=== PATIENT | female | born 2000 | race Caucasian/White ===

== ENCOUNTER 2020-03-27 10:26 | Emergency (ER) | payer OTHER, SELFPAY ==
[2020-03-27 10:41] VITALS: BP 125/58; PULSE 69; RESP 20; TEMP 37.2; O2SAT 100
--- NOTE | 2020-03-27 10:56 | ED.SKABFB ---
HPI - Skin/Abscess/Foreign Bdy General Chief complaint: Skin/Abscess/Foreign Body Stated complaint: Rash on arms Time Seen by Provider: 03/27/20 10:47 Source: patient and RN notes reviewed Mode of arrival: ambulatory Limitations: no limitations History of Present Illness HPI narrative: Patient presents today with a 2-week history of a pruritic rash to her right arm. States it has been worsening since onset. Denies pain or drainage. States that she recently had a tattoo to the forearm and has been applying Aquaphor and hydrocortisone to the area with mild short-term relief. States she did have a small amount of the rash prior to the tattoo. Denies any new household products, foods, plant or animal exposures, medications. MD complaint: rash Related Data Allergies Allergy/AdvReac Type Severity Reaction Status Date / Time No Known Allergies Allergy Verified 03/27/20 10:43 Review of Systems Review of Systems: Narrative: CONSTITUTIONAL: Denies body aches, fever, chills, or sweats. EYES: Denies visual changes, redness, or discharge. ENT: Denies rhinorrhea, congestion, sore throat, or otalgia. CARDIOVASCULAR: Denies chest pain, palpitations, or edema. RESPIRATORY: Denies cough or dyspnea. GASTROINTESTINAL: Denies abdominal pain, nausea, vomiting, or diarrhea. GENITOURINARY: Denies dysuria or hematuria. SKIN: + Pruritic rash MUSCULOSKELETAL: Denies back pain, joint pain, or myalgia. NEUROLOGIC: Denies headache, numbness, tingling, or weakness. PSYCH: Denies depression or anxiety. PMFSH Comments At time of signature, I have reviewed and agree with nursing past medical, surgical, social and family history unless otherwise noted. Please see nursing chart for further information. There is no relevant family history pertinent to the presenting complaint Exam Narrative: Exam Narrative: GENERAL: Well-appearing, well-nourished, and in no acute distress. HEAD: Normocephalic, atraumatic. EYES: EOMI. No redness or drainage. Conjunctivae normal. ENT: Mucous membranes pink and moist. NECK: Normal AROM. CHEST: No respiratory distress. EXTREMITIES: Normal range of motion. No edema. SKIN: Warm, dry. Capillary refill normal. Normal skin turgor. 10 x 12 cm area of mildly erythematous papular rash to the right antecubital fossa, extending to the right bicep. No induration, vesicles, drainage, or crusting. It is not warm to touch. No edema. NEURO: No focal deficits. Alert and oriented x3. Gait steady. PSYCH: Normal affect. No signs of depression or anxiety. Course Vital Signs Vital signs: Vital Signs Temperature 99 F 03/27/20 10:41 Pulse Rate 69 03/27/20 10:41 Respiratory Rate 20 03/27/20 10:41 Blood Pressure 125/58 L 03/27/20 10:41 Pulse Oximetry 100 03/27/20 10:41 Temperature 99 F 03/27/20 10:41 Pulse Rate 69 03/27/20 10:41 Respiratory Rate 20 03/27/20 10:41 Blood Pressure 125/58 L 03/27/20 10:41 Pulse Oximetry 100 03/27/20 10:41 Reviewed. Pt has been instructed to follow up with her PCP regarding her elevated blood pressure today. MDM - Skin/Abscess/Foreign Bdy Differential Diagnosis Differential diagnosis: Likely abscess of skin or subcutaneous tissue, viral exanthem, urticaria, allergic reaction to drug, cellulitis, eczema, impetigo and contact dermatitis Critical Care Time Critical Care Time Critical Care Time: No Discharge Plan Discharge Clinical Impression: Contact dermatitis Qualifiers: Contact dermatitis type: unspecified Contact dermatitis trigger: unspecified trigger Qualified Code(s): L25.9 - Unspecified contact dermatitis, unspecified cause Patient Disposition: Home, Self-Care Condition: Stable Instructions: Contact Dermatitis (DC) Additional Instructions: Please take the prednisone as directed. Take Benadryl for itching. You may apply hydrocortisone to the rash as well. Follow-up with your doctor in 2 to 3 days if symptoms are not improving. Your blood p
== END 2020-03-27 11:10 | disposition home or self-care (01) ==
PROVIDERS: Emergency Provider Nurse Practitioner
DX: L25.9 Unspecified contact dermatitis, unspecified cause (principal)
CPT/HCPCS: 99203; G0463

== ENCOUNTER 2022-12-09 11:22 | Emergency (ER) | payer OTHER, SELFPAY ==
[2022-12-09 11:30] VITALS: BP 135/65; PULSE 63; RESP 20; TEMP 36.7; O2SAT 97
--- NOTE | 2022-12-09 11:34 | ED.ABDPAIN ---
HPI - Abdominal Pain General Chief Complaint: Abdominal Pain Stated Complaint: stomach issues Source: patient and RN notes reviewed History of Present Illness HPI narrative: 22 yo F presents to urgent care with complaints of intermittent epigastric abdominal pain. Pt states it has probably been going on for a couple years but the last few days it has been worse. Pt denies any pain radiation. Denies any vomiting, chest pain, SOB, fevers, chills, diarrhea, or lower abdominal pain. Pt states she saw her MD about this a couple years ago and she was prescribed she thinks Pepcid or something of the like that did not help. Pt has taken ibuprofen and ASA for this pain. Related Data Allergies Allergy/AdvReac Type Severity Reaction Status Date / Time No Known Allergies Allergy Verified 03/27/20 10:43 Review of Systems Review of Systems: CONSTITUTIONAL: Denies fever, chills, or sweats. EYES: Denies visual changes, redness, or discharge. ENT: Denies otalgia and sore throat CARDIOVASCULAR: Denies chest pain, palpitations, or edema. RESPIRATORY: Denies cough or dyspnea. GASTROINTESTINAL: Denies abdominal pain, nausea, vomiting, or diarrhea. GENITOURINARY: Denies dysuria or hematuria. SKIN: Denies rash or itching. MUSCULOSKELETAL: Denies back pain, joint pain, or myalgia. NEUROLOGIC: Denies headache, numbness, or weakness. Pertinent positives per HPI. PMFSH Comments At the time of my signature, I reviewed and agree with the nursing past medical, surgical, social, and family history. There is no relevant family history pertinent to the patient complaint. Exam Narrative: GENERAL: This is a well-nourished, well-developed patient, in no apparent distress. HEAD: normocephalic, atraumatic. EYES: Sclera clear/white. Vision is grossly intact. EARS: External ears normal, auditory canals clear and without drainage. Hearing grossly intact. NOSE: External nose normal with no obvious nasal discharge, nares without redness, no rhinorrhea. NECK: Neck supple, non-tender without lymphadenopathy, masses or thyromegaly. CARDIOVASCULAR: Regular rate and rhythm without murmurs, gallops, or rubs. RESPIRATORY: Clear to auscultation. Breath sounds equal bilaterally. No wheezes, rales, or rhonchi. GASTROINTESTINAL: Abdomen soft, non-tender, nondistended. Bowel sounds are active. No hepato-splenomegaly, or palpable masses. No guarding. SKIN: warm, intact with no suspicious lesions or rash, good texture and turgor. NEURO: awake, alert, and oriented to person, place and time. There were no obvious focal neurologic abnormalities. BACK: Nontender without deformity or crepitus. No flank tenderness. Course Course Level of Care: Express Care Visit Vital Signs Vital signs: reviewed MDM - Abdominal Pain MDM Narrative Medical decision making narrative: Try to avoid alcohol, smoking, and caffeine. Do not take Ibuprofen or aspirin for your abdominal pain. If you have to take ibuprofen or aspirin for other ailments, take only prescribed amount and make sure you take it with food. Make sure to eat a small meal at dinner time. May take Maalox (offered over the counter) to help with the acute upper abdomen pain. If pain becomes severe, go to the ER. Follow up with your flying teacher if symptoms persist. Differential Diagnosis Differential diagnosis: Likely gastroenteritis and other (gastritis, gastric ulcer, GERD, cholelithiasis, cholecystitis) Critical Care Time Critical Care Time Critical Care Time: No Discharge Plan Discharge Clinical Impression: Gastritis Qualifiers: Gastritis type: unspecified gastritis Chronicity: unspecified Gastritis bleeding: presence of bleeding unspecified Qualified Code(s): K29.70 - Gastritis, unspecified, without bleeding Patient Disposition: Home, Self-Care Condition: Stable Instructions: Gastritis (DC) Additional Instructions: Try to avoid alcohol, smoking, and caffeine. Do not take Ibuprofen or aspirin f
== END 2022-12-09 11:47 | disposition home or self-care (01) ==
PROVIDERS: Emergency Provider Nurse Practitioner Family
DX: K29.70 Gastritis, unspecified, without bleeding (principal)
CPT/HCPCS: 99211; G0463

== ENCOUNTER 2024-07-02 12:29 | Emergency (ER) | payer OTHER, SELFPAY ==
[2024-07-02 12:30] VITALS: BP 144/68; PULSE 92; RESP 16; TEMP 36.6; O2SAT 99
--- OUTSIDE RECORDS SUMMARY | 2024-07-02 12:35 | XMS_ITS | Clinical Summary ---
Author Organization [facility] [employer] [place] Address [address] [place] [address] Care Team Providers Care Cab Driver Name Role Phone Unavailable Primary Care Provider Unavailabl e Allergies No known active allergies Medications norethindrone Ac-Eth estradiol (Loestrin 02/28, ,) 1-20 mg-mcg tabletIndications: Encounter for refill of prescription for contraception Take 1 Tablet by mouth daily. 90 Tablet 3 2 Active Active Problems Problem Noted Date Diagnosed Date Anxiety state 07/09/2017 Immunizations Immunization Administration Dates Next Due Meningococcal Polysaccharide Vaccine SQ 10/21/19 18 Family History Medical History Relation Name Comments No Known Problems Brother No Known Problems Father No Known Problems Maternal Grandfather No Known Problems Maternal Grandmother No Known Problems Mother No Known Problems Paternal Grandfather No Known Problems Paternal Grandmother No Known Problems Sister Relation Name Status Comments Brother Alive Father Alive Maternal Grandfather Alive Maternal Grandmother Alive Mother Alive Paternal Grandfather Alive Paternal Grandmother Alive Sister Alive Social History Tobacco Use Types Packs/Day Years Used Date Smoking Tobacco: Light Smoker Smokeless Tobacco: Never Tobacco Cessation:Ready to Q uit: No; Counseling Given: Yes Alcohol Use Standard Drinks/Week Comments No 0 (1 standard drink = 0.6 oz pur e alcohol) Comments No Sex and Gender Information Value Date Recorded Sex Assigned at Not on file Legal Sex Female 12:55 PM CDT Gender Identity Not on file Sexual Orientation Not on file Last Filed Vital Signs Vital Sign Reading Time Taken Comments Blood Pressure 116/72 11/12/2021 2:52 PM CDT Pulse 77 11/12/2021 2:52 PM CDT Temperature 37.1 C (98.7 F) 11/12/2021 2:52 PM CDT Respiratory Rate 18 11/12/2021 2:52 PM CDT Oxygen Saturation 97% 11/12/2021 2:52 PM CDT Inhaled Oxygen Concentration - - Weight 114.3 kg (252 lb) 11/12/2021 2:52 PM CDT Height 160 cm (5' 3 ) 11/12/2021 2:52 PM CDT Body Mass Index 44.64 11/12/2021 2:52 PM CDT Plan of Treatment Health Maintenance Due Date Last Done Comments CHLAMYDIA SCREENING (ANNUAL) 11-24 YEARS 08/06/2011 HPV VACCINES (1 - 3-dose series) 08/06/2015 DTAP/TDAP/TD VACCINES (1 - Tdap) 08/06/2019 HEPATITIS B VACCINES (1 of 3 - 19+ 3-dose series) 07/11 CERVICAL CANCER SCREENING 2021 HPV/Cotest (21-29) 2021 PAP SMEAR 2021 INFLUENZA VACCINE (#1) 2023 11/12/2021 Insurance [facility] OPEN ACCESS * Guarantor: [employer] Account Type Relation to Patient Date of Phone Billing Address Corporate Employer ATTN: [employer] [address] [address]
--- OUTSIDE RECORDS SUMMARY | 2024-07-02 12:35 | XMS_ITS | Clinical Summary ---
Author Organization [facility] Address [address] [place] [address] Phone Care Team Providers Care Velvet Cutter Name Role Phone Amando Carnes MD Primary Care Provider [phone] Allergies No known active allergies Medications pantoprazole (PROTONIX) 40 MG Tablet Delayed Response Take 1 Tablet by mouth daily. 30 Tablet 03/13/2023 Active traMADol (ULTRAM) 50 MG TabletIndicatio ns:Epigastric pain Take 1-2 Tablets by mouth every 6 hours as needed for Moderate or more severe pain. 12 Tablet 03/13/2023 Active Social History Tobacco Use Types Packs/Day Years Used Date Smoking Tobacco: Never Smokeless Tobacco: Never Tobacco Cessation:Counseling Given: Not Answered Alcohol Use Standard Drinks/Week Comments Yes 0 (1 standard drink = 0.6 oz pur e alcohol) on occassion Sexually Active Control Partners Comments Yes Comments No Sex and Gender Information Value Date Recorded Sex Assigned at Not on file Legal Sex Female 8:52 PM CDT Gender Identity Not on file Sexual Orientation Not on file Last Filed Vital Signs Vital Sign Reading Time Taken Comments Blood Pressure 144/73 03/13/2023 2:15 PM COMMUNICATION MANAGER Pulse 64 03/13/2023 2:15 PM COMMUNICATION MANAGER Temperature 36.6 C (97.9 F) 03/13/2023 12:14 PM COMMUNICATION MANAGER Respiratory Rate 16 03/13/2023 12:1 4 PM COMMUNICATION MANAGER Oxygen Saturation 98% 03/13/2023 2:15 PM COMMUNICATION MANAGER Inhaled Oxygen Concentration - - Weight 118.3 kg (260 lb 12.9 oz) 2023 12:14 PM COMMUNICATION MANAGER Height 157.5 cm (5' 2 ) 03/13/2023 12:1 4 PM COMMUNICATION MANAGER Body Mass Index 47.7 03/13/2023 12:14 PM COMMUNICATION MANAGER Plan of Treatment Not on file Insurance MEDICAID [place] Care Teams Velvet Cutter Relationship Specialty Start Date End Date Amando Carnes MD [address] [place] [id number] PCP - General Family Medicine 03/13/23
--- NOTE | 2024-07-02 12:38 | ED_ITS ---
HPI - Skin/Abscess/Foreign Bdy General Chief complaint: Skin/Abscess/Foreign Body Stated complaint: Rash Time Seen by Provider: 07/02/24 12:38 Source: patient and RN notes reviewed Mode of arrival: ambulatory Limitations: no limitations History of Present Illness HPI narrative: 23-year-old female presents Express Care complaining of rash her body. Patient stated started approximately 2 days ago. Two days ago she was doing [employer] work and was exposed to poison kelsi while she was working in the [employer]. She has now developed a rash throughout her arms, trunk, legs, and in her perineum in between her vagina and rectum. Patient reports the rest is itchy. Patient has been using calamine lotion with some relief but states the rash starting to spread worse. Patient denies any concerns for STIs. Patient denies any other symptoms. Related Data Allergies Allergy/AdvReac Type Severity Reaction Status Date / Time No Known Allergies Allergy Verified 07/02/24 12:38 Review of Systems Review of Systems: CONSTITUTIONAL: Denies fever, chills, or sweats. EYES: Denies visual changes, redness, or discharge. ENT: Denies rhinorrhea, congestion, sore throat, or otalgia. CARDIOVASCULAR: Denies chest pain, palpitations, or edema. RESPIRATORY: Denies cough or dyspnea. GASTROINTESTINAL: Denies abdominal pain, nausea, vomiting, or diarrhea. GENITOURINARY: Denies dysuria or hematuria. SKIN: Positive for rash and itching. MUSCULOSKELETAL: Denies back pain, joint pain, or myalgia. NEUROLOGIC: Denies headache, numbness, or weakness. PSYCHIATRIC: Denies anxiety or depression. All other systems reviewed are negative, except as documented in HPI. PMFSH Comments At the time of my signature, I reviewed and agree with the nursing past medical, surgical, social, and family history. There is no relevant family history pertinent to the patient complaint. Exam Narrative: GENERAL: This is a well-nourished, well-developed adult, in no apparent distress. They are non ill-appearing, nontoxic appearing. HEAD: normocephalic, atraumatic. EYES: Sclera clear/white. Conjunctiva normal. Vision is grossly intact. Extraocular movements intact EARS: External ears normal, Hearing grossly intact. NOSE: External nose normal THROAT: Mucous membranes moist, NECK: Neck supple, CARDIOVASCULAR: Regular rate and rhythm RESPIRATORY: Respiratory rate normal, respiratory effort nonlabored, no respiratory distress GENTIOURINARY: Patient declined pelvic exam SKIN: Pruritic, papular and vesicular rash throughout the patient's arms, trunk, and legs. No area of fluctuance or induration. No surrounding cellulitis. No exudate. Patient reports similar lesions to her perineum but declined examiner to look NEURO: awake, alert, and oriented to person, place and time. There were no obvious focal neurologic abnormalities. EXTREMITIES: No joint tenderness, effusion, or edema noted. Course Course Emergency Course: Portions of this record may have been created with voice recognition software Level of Care: Express Care Visit Vital Signs Vital signs: Vital Signs Temperature 97.9 F 07/02/24 12:30 Pulse Rate 92 07/02/24 12:30 Respiratory Rate 16 07/02/24 12:30 Blood Pressure 144/68 H 07/02/24 12:30 Pulse Oximetry 99 07/02/24 12:30 Oxygen Delivery Room Air 07/02/24 12:30 Temperature 97.9 F 07/02/24 12:30 Pulse Rate 92 07/02/24 12:30 Respiratory Rate 16 07/02/24 12:30 Blood Pressure 144/68 H 07/02/24 12:30 Pulse Oximetry 99 07/02/24 12:30 Oxygen Delivery Room Air 07/02/24 12:30 Reviewed MDM - Skin/Abscess/Foreign Bdy MDM Narrative Medical decision making narrative: Patient likely has contact dermatitis related to poison kelsi exposure. Will prescribe prednisone taper given extent of rashes throughout her body. Patient states lesions or perineum are similar to the rest throughout her body declined a pelvic or perineum exam. Patient denies any concerns for STIs. Discussed physical exam findings. Advised supportive measures and signs/symptoms to go to the ER. Pt is appropriate for outpt treatment and f/u. Differential Diagnosis Differential diagnosis: Likely cellulitis, insect bites and contact dermatitis Critical Care Time Critical Care Time Critical Care Time: No Discharge Plan Discharge Clinical Impression: Contact dermatitis Qualifiers: Contact dermatitis type: unspecified Contact dermatitis trigger: unspecified trigger Qualified Code(s): L25.9 - Unspecified contact dermatitis, unspecified cause Patient Disposition: Home Condition: Stable Instructions: Poison Kelsi (ED) Additional Instructions: Take the prednisone as directed. Taken in the morning with food. Please wear sunscreen while taking prednisone after going to be outside. You may take Zyrtec or Claritin as needed for allergy symptoms or itchiness. You May also take Benadryl for itchiness however Benadryl may make you drowsy so do not drive or operate machinery if you take Benadryl. Follow-up primary care provider in 3-5 days. If your symptoms worsen, you develop worsening redness, swelling, fevers, abnormal discharge, breathing problems, or any other concerns please go to the ER immediately. You may buy [id number] Tecnu soap at [facility] to help wash the or oils of the poison kelsi off her skin. Use as directed on the bottle. Patient Language: Lithuanian Prescriptions: New prednisone 10 mg tablets,dose pack See Taper PO DAILY 12 Days Qty: 42 0RF Taper: Prednisone Taper from 60 mg;12 days 60 mg DAILY for 2 Days and 0 Hour 50 mg DAILY for 2 Days and 0 Hour 40 mg DAILY for 2 Days and 0 Hour 30 mg DAILY for 2 Days and 0 Hour 20 mg DAILY for 2 Days and 0 Hour 10 mg DAILY for 2 Days and 0 Hour Follow-up/Referrals: PHYSICIAN,SENIOR [employer] UN[employer] ADMINISTRATOR [Primary Care Provider] - Time of Disposition: 12:47
== END 2024-07-02 12:52 | disposition home or self-care (01) ==
DX: L25.9 Unspecified contact dermatitis, unspecified cause (principal)
CPT/HCPCS: 99213; G0463